=== PATIENT | male | born 1970 | race Caucasian/White ===

== ENCOUNTER 2017-01-02 17:45 | Outpatient (CLI) | payer OTHER ==
--- NOTE | 2017-01-02 18:34 | DIAGNOSTIC IMAGING REPORT ---
PROCEDURE: CT HEAD WITHOUT CONTRAST INDICATION: PAIN BEHIND RIGHT EAR TECHNIQUE: Noncontrast axial images with sagittal and coronal reformations. COMPARISON: None. FINDINGS: Sulci, ventricular system, and brain parenchyma are normal. No evidence of acute intracranial process. Visualized mastoids and sinuses are clear. IMPRESSION: 1. Negative non-enhanced head CT.
--- NOTE | 2017-01-02 18:51 | DIAGNOSTIC IMAGING REPORT ---
PROCEDURE: CT SINUS/FACIAL BONES W/O CONT CLINICAL INDICATION: PAIN BEHIND RIGHT EAR TECHNIQUE: Noncontrast axial images with coronal reformations. COMPARISON: None. FINDINGS: Paranasal sinuses are clear. Ostiomeatal units are patent. Mild dextroconvex septal deviation. No bony erosion are destruction. Normal TMJs. Globes and orbits are unremarkable. Soft tissues are unremarkable. IMPRESSION: 1. Mild dextroconvex nasal septal deviation. All CT scans at this facility use dose modulation, iterative reconstruction, and/or weight-based dosing when appropriate to reduce radiation dose to as low as reasonably achievable.
== END 2017-01-03 16:03 | disposition home or self-care (01) ==
LOC: CT SRH 17:45
DX: H92.03 Otalgia, bilateral (principal); R07.9 Chest pain, unspecified; J34.2 Deviated nasal septum
CPT/HCPCS: 90074; 90100; 90616; 91556; 92610; 95059